=== PATIENT | female | born 1990 | race Caucasian/White ===

== ENCOUNTER 2017-11-26 04:40 | Emergency (ER) | payer OTHER ==
--- NOTE | 2017-11-26 05:28 | ER Document Report ---
ED Medical Screen (RME) - General Chief Complaint: ETOH Abuse Stated Complaint: AMS Notes: Patient is a 27-year-old female who is brought in by Cristino Mckeonon states that there was a warrant out for her arrest, they went to pick her up at a hotel room, she was brought to shelter from there after being wasted in the car, she was becoming very sedated and difficult to arouse so she was brought to the emergency department. She reportedly told the charge poster that she had been drinking, she denied recreational drugs, the other person at the hotel did not provide any information. No new medications, no known medical history, patient is unable to answer my questions. Past Medical History Renal/ Medical History: Denies: Hx Peritoneal Dialysis Physical Exam - Vital signs Vitals: Pulse Ox 99 11/26/17 04:46 - Respiratory Respiratory status: No respiratory distress Breath sounds: Normal. No: Decreased air movement - Cardiovascular Rhythm: Regular. No: Tachycardia Heart sounds: Normal auscultation, S1 appreciated, S2 appreciated Course - Re-evaluation Re-evalutation: I could not arouse patient with sternal rub at bedside, she was placed on monitor and found had normal vital signs, NPA was placed because I still could not arouse patient to protect airway. Patient did arouse when the NPA was placed although afterwards immediately went back to sleep. Patient reportedly has been drinking and denies drugs, pupils are not pinpoint but are slightly small bilaterally, responsive. Workup pending. - Vital Signs Vital signs: Temp Pulse Resp BP Pulse Ox 98.3 F 12 130/101 H 98 11/26/17 04:54 11/26/17 06:01 11/26/17 06:00 11/26/17 06:01 - Laboratory Result Diagrams: 11/26/17 06:14 11/26/17 06:14 Laboratory results interpreted by me: 11/26/17 11/26/17 06:14 06:14 RDW 15.8 H Seg Neutrophils % 31.3 L Lymphocytes % 46.5 H Monocytes % 17.4 H AST 43 H Salicylates < 1.0 L Acetaminophen < 10 L
[2017-11-26 06:35] LABS: ABSOLUTE BASOPHILS # (AUTO) 0.1 10^3/uL (0.0-0.2); ABSOLUTE EOSINOPHILS # (AUTO) 0.3 10^3/uL (0.0-0.6); ABSOLUTE LYMPHOCYTES (AUTO) 3.6 10^3/uL (0.5-4.7); ABSOLUTE MONOCYTES (AUTO) 1.3 10^3/uL (0.1-1.4); ABSOLUTE NEUT (AUTO) 2.4 10^3/uL (1.7-8.2); EOSINOPHILS % (AUTO) 3.8 % (0-6); HEMATOCRIT 37.4 % (36.0-47.0); HEMOGLOBIN 12.7 g/dL (12.0-15.5); LYMPHOCYTES % (AUTO) 46.5 % (13-45); MEAN CORPUSCULAR HEMOGLOBIN 30.1 pg (27.0-33.4); MEAN CORPUSCULAR VOLUME 88 fl (80-97); MONOCYTES % (AUTO) 17.4 % (3-13); PLATELET COUNT 431 10^3/uL (150-450); RED BLOOD COUNT 4.23 10^6/uL (3.72-5.28); RED CELL DISTRIBUTION WIDTH 15.8 % (11.5-14.0); SEGMENTED NEUTROPHILS % (AUTO) 31.3 % (42-78); TOTAL CELLS COUNTED % (AUTO) 100 %; WHITE BLOOD COUNT 7.7 10^3/uL (4.0-10.5)
--- NOTE | 2017-11-26 07:04 | ER Document Report ---
ED General - General Chief Complaint: ETOH Abuse Stated Complaint: AMS Time Seen by Provider: 11/26/17 06:38 Notes: HPI-Patient is a 27-year-old female who is brought in by Sydney Mckeon states that there was a warrant out for her arrest, they went to pick her up at a hotel room, she was brought to snf from there after being wasted in the car, she was becoming very sedated and difficult to arouse so she was brought to the emergency department. She reportedly told the offbearer sewer pipe that she had been drinking, she denied recreational drugs, the other person at the hotel did not provide any information. No new medications, no known medical history, patient is unable to answer my questions. REVIEW OF SYSTEMS: ALL OTHER SYSTEMS REVIEWED AND NEGATIVE. PHYSICAL EXAMINATION: GENERAL: drowsy HEAD: Atraumatic, normocephalic. EYES: Pupils equal round and reactive to light, extraocular movements intact, conjunctiva are normal. ENT: Nares patent, oropharynx clear without exudates. Moist mucous membranes. NECK: Normal range of motion, supple without lymphadenopathy LUNGS: Breath sounds clear to auscultation bilaterally and equal. No wheezes rales or rhonchi. HEART: Regular rate and rhythm without murmurs ABDOMEN: Soft, nontender, nondistended abdomen. No guarding, no rebound. No masses appreciated. Female : deferred Musculoskeletal: Normal range of motion, no pitting or edema. No cyanosis. NEUROLOGICAL: Cranial nerves grossly intact. Normal speech, normal gait. Normal sensory, motor exams PSYCH: Normal mood, normal affect. SKIN: Warm, Dry, normal turgor, no rashes or lesions noted. Dictation was performed using [employer] voice recognition software - HPI Onset: Other Onset/Duration: Gradual Severity: Moderate Associated symptoms: denies: None, Allergy/hay fever, Body/muscle aches, Chest pain, Chills, Nonproductive cough, Productive cough, Diarrhea, Drooling, Earache , Fever, Headache, Hoarseness, Hurts to breath, Leg swelling, Nausea, Vomiting, Rhinnorhea, Sinus pain/drainage, Shortness of breath, Slow to respond, Sore throat, Sweating, Weakness, Other Exacerbated by: denies: Denies, Supine, Sitting, Standing, Movement, Walking, Coughing, Deep breathing, Food, Other Relieved by: denies: Denies, Supine, Sitting, Standing, Remaining still, Antacids, Food, Other Past Medical History - Social History Smoking Status: Current Every Day Smoker Frequency of alcohol use: Heavy Drug Abuse: Heroin, Marijuana, Methamphetamine Lives with: Alone Family History: Reviewed & Not Pertinent Patient has suicidal ideation: No Patient has homicidal ideation: No Renal/ Medical History: Denies: Hx Peritoneal Dialysis Review of Systems - Review of Systems -: Yes ROS unobtainable due to patient's medical condition Physical Exam - Vital signs Vitals: Pulse Ox 99 11/26/17 04:46 Course - Re-evaluation Re-evalutation: 11/26/17 13:42 She was kept in the ER for about 5 hours or more, eventually she became alert and able to talk to me. Subsequently she was discharged home. - Vital Signs Vital signs: Temp Pulse Resp BP Pulse Ox 98.3 F 12 130/101 H 98 11/26/17 04:54 11/26/17 06:01 11/26/17 06:00 11/26/17 06:01 - Laboratory Result Diagrams: 11/26/17 06:14 11/26/17 06:14 Laboratory results interpreted by me: 11/26/17 11/26/17 11/26/17 06:14 06:14 12:17 RDW 15.8 H Seg Neutrophils % 31.3 L Lymphocytes % 46.5 H Monocytes % 17.4 H AST 43 H Urine Ketones 20 H Ur Leukocyte Esterase TRACE H Salicylates < 1.0 L Acetaminophen < 10 L - EKG Interpretation by Ct EKG shows normal: Sinus rhythm Rate: Normal Rhythm: NSR - Normal sinus rhythm at the rate of 79 bpm normal axis no acute ST elevation ST depression T-wave inversion noted. Normal cardiogram Discharge - Discharge Clinical Impression: Polysubstance abuse Condition: Fair Disposition: HOME, SELF-CARE Instructions: Cocaine Abuse ([facility])
[2017-11-26 07:14] LABS: ALANINE AMINOTRANSFERASE 39 U/L (9-52); ALBUMIN 4.2 g/dL (3.5-5.0); ALKALINE PHOSPHATASE 126 U/L (38-126); ANION GAP 9 (5-19); ASPARTATE AMINO TRANSFERASE 43 U/L (14-36); BILIRUBIN,DIRECT 0.3 mg/dL (0.0-0.4); BILIRUBIN,TOTAL 0.3 mg/dL (0.2-1.3); BLOOD UREA NITROGEN 16 mg/dL (7-20); CALCIUM 9.8 mg/dL (8.4-10.2); CARBON DIOXIDE 27 mmol/L (22-30); CHLORIDE 106 mmol/L (98-107); GLUCOSE 83 mg/dL (75-110); POTASSIUM 4.5 mmol/L (3.6-5.0); SODIUM 141.8 mmol/L (137-145); TOTAL PROTEIN 7.7 g/dL (6.3-8.2)
[2017-11-26 07:16] LABS: ACETAMINOPHEN < 10 ug/mL (10-30); ALCOHOL < 10 mg/dL (NONE DETECTED); SALICYLATE < 1.0 mg/dL (2.0-20.0)
--- NOTE | 2017-11-26 07:44 | EKG REPORT ---
SEVERITY:- BORDERLINE ECG - SINUS RHYTHM BORDERLINE PROLONGED QT INTERVAL : Confirmed by: Liam Melendez MD 26-Nov-2017 07:43:24
[2017-11-26 12:40] LABS: APPEARANCE,URINE CLOUDY; BILIRUBIN,URINE NEGATIVE (NEGATIVE); COLOR,URINE YELLOW; GLUCOSE, URINE NEGATIVE (NEGATIVE); KETONES,URINE 20 mg/dL (NEGATIVE); LEUKOCYTE ESTERASE,URINE TRACE (NEGATIVE); NITRITE,URINE NEGATIVE (NEGATIVE); PROTEIN,URINE NEGATIVE (NEGATIVE); URINE SPECIFIC GRAVITY 1.019; UROBILINOGEN,URINE NEGATIVE mg/dL (<2.0)
[2017-11-26 12:58] LABS: URINE BARBITURATES SCREEN NEGATIVE; URINE BENZODIAZEPINES SCREEN NEGATIVE; URINE COCAINE SCREEN UNCONFIRMED POSITIVE; URINE MARIJUANA (THC) SCREEN UNCONFIRMED POSITIVE; URINE METHADONE SCREEN NEGATIVE; URINE PHENCYCLIDINE SCREEN NEGATIVE
[2017-11-26 14:28] VITALS: BP 126/99
== END 2017-11-26 14:10 | disposition home or self-care (01) ==
LOC: ER 04:40
DX: F10.10 Alcohol abuse, uncomplicated (principal); F12.10 Cannabis abuse, uncomplicated; F11.10 Opioid abuse, uncomplicated; F15.10 Other stimulant abuse, uncomplicated; F17.200 Nicotine dependence, unspecified, uncomplicated
CPT/HCPCS: 36415; 80053; 80307; 81001; 84703; 85025; 93005; 93010; 99284